=== PATIENT | female | born 1965 | race Caucasian/White ===

== ENCOUNTER 2024-01-26 12:10 | Emergency (ER) | payer MEDICAID, SELFPAY ==
[2024-01-26 12:24] VITALS: BP 182/101
--- NOTE | 2024-01-26 12:38 | ED.GENMED ---
History of Present Illness
General
Chief Complaint: Back Pain
Source: patient
Exam Limitations: none
Time Seen by Provider: 01/26/24 12:31
Nursing documentation reviewed up to this point in time: agreed with
History of Present Illness
History of Present Illness:
Patient is a 58-year-old female presents to the ER complaining of low back pain. She reports back pain started about 3 weeks ago. She denies any injury but does lift a lot. She reports she moves furniture around her house. She reports pain is
across her low back and radiates into her bilateral buttock region. She did see a chiropractor 2 weeks ago and that seemed to make her slightly more sore. She also took a Medrol Dosepak which she had leftover at her house. She reports that helped
however as soon as she stopped the pain came back.
She denies any loss of bowel or bladder. Denies any numbness tingling weakness in extremities.
Past History
Past History
ED Past Medical History: Other (Diverticulitis)
ED Past Surgical History: Other (Tummy tuck); Negative Appendectomy
Social History
Tobacco: Smoker
Alcohol: None
Drug: None
Personal:
Living: with family
Employment: Employed
Family History
Family History: Other
Review of Systems
Review of Systems
Allergies reviewed?: Yes
All Other Systems: ROS reviewed and negative except as documented in HPI and ROS
Constitutional: Reports no symptoms; Denies fever, fatigue or chills
Respiratory: Reports no symptoms
Cardiac: Reports no symptoms
ABD/GI: Reports no symptoms
: Denies incontinence
Musculoskeletal: Reports back pain (low back pain )
Skin: Reports no symptoms
Neurological: Denies weakness or numbness
Psychiatric: Reports no symptoms
Phy Exam
General Physical Exam
General Presentation: no apparent distress
General age: appears stated age
General Skin: warm and dry
General Habitus: normal
General Mental: alert
General Hydration: appears well hydrated
Neurological Exam
Neurological Exam: alert, oriented x3 and other (normal dorsiflexion/plantar flexion, nml distal sensation ; normal patellar reflexes negative straight leg raise normal distal sensation bilaterally)
Musculoskeletal Exam
Musculoskeletal Exam: full ROM and other (Normal inspection to back no redness normal inspection to back no rash no erythema to lumbar area mildly tender throughout the lumbar region; patient has pain when changing positions from sitting to standing
and back extension)
Skin Exam
Skin Exam: normal color and warm/dry
Psychiatric Exam
Psychiatric Exam: normal mood/affect
Course
Orders/Labs/Results
Orders:
Orders
01/26/24 12:52
CT Lumbar Spine W/o Iv Contras Urgent
Comment:
Reason For Exam: increasing lumbar pain radiating to buttocks
01/26/24 12:54
Dexamethasone Sod Phosphate [Decadron] 10 mg IM NOW STA
01/26/24 12:55
Lidocaine [Lidocaine 4% Patch] 1 patch TOPICAL NOW STA
Apply Lidocaine patch(s) to:: lumbar region
01/26/24 14:57
Vital Signs- Treatment ONCE
Frequency: Once
Vital Signs
Initial and Last Documented VS:
Initial Vital Signs
Temp Pulse Resp BP Pulse Ox
98.2 F 85 18 182/101 100
01/26/24 12:24 01/26/24 12:24 01/26/24 12:24 01/26/24 12:24 01/26/24 12:24
Last Documented Vital Signs
Temp Pulse Resp BP Pulse Ox
98.2 F 80 18 148/81 95
01/26/24 12:24 01/26/24 15:49 01/26/24 15:49 01/26/24 15:49 01/26/24 15:49
MDM/Problems Addressed
Differential Diagnosis Includes:
Not limited to muscle sprain strain, sciatica
MDM/Problems Addressed:
All right thank you symptoms are consistent with lumbar pain, sciatica. Patient no acute distress with no neurological deficit. She did try a small Medrol Dosepak at home which was old however that did improve her symptoms. No acute findings on
CAT scan denies any recent fever chills no evidence clinical symptoms for infection epidural abscess.
Symptoms are likely muscular/sciatica. Will DC with prednisone Flexeril close outpatient follow-up family doctor.
*Radiology
Radiology exam reviewed: radiology read reviewed
*Critical Care Note
Total Time (30-74mins, 75-104mins- exclusive of procedures): Not Applicable
ED Attending Note
-
Portions of this chart may have been created with voice recognition software.� Occasional wrong word or��sound alike� substitutions may have occurred due to the inherent limitations of voice recognition software.
Discharge Plan
Departure
Patient Disposition: Home (Routine Discharge)
Date of Disposition: 01/26/24
Time of Disposition: 15:46
Patient with high blood pressure during this ER visit?: Yes
Condition: Fair
Covid-19: Not Applicable
Discharge Problem:
Low back pain, Sciatica
Instructions: Low Back Pain (DC), Sciatica (DC), BLOOD PRESSURE
Prescriptions:
New
prednisone 10 mg Tablet
See Rx Instructions .ROUTE .COMPLEX Qty: 30 0RF
Rx Instructions:
Take By Mouth:
40 mg daily x3 days, 30 mg daily x3 days,
20 mg daily x3 days, 10 mg daily x3 days.
cyclobenzaprine 10 mg tablet
10 mg PO Q8H PRN (Reason: muscle spasm) Qty: 10 0RF
No Action
levothyroxine 75 MCG tablet
75 mcg PO DAILY
dextroamphetamine-amphetamine [Adderall] 20 MG tablet
15 mg PO DAILY
valsartan-hydrochlorothiazide 1 EACH tablet
1 tab PO DAILY
metronidazole 500 MG tablet
500 mg PO TID Qty: 15 0RF
levofloxacin 500 MG tablet
500 mg PO DAILY Qty: 5 0RF
Referrals:
Gertrudis Busch CRNP [Family Provider] -
Activity Restrictions/Additional Instructions:
As discussed start prednisone tomorrow. This medication was sent to your pharmacy this is a medication taper.
In addition you were given a prescription for Flexeril(muscle relaxer) to take as needed. This medication may cause drowsiness. No driving or drinking alcohol while taking this medication. You may walk however avoid lifting. You may try warm
moist heat to your lower back.
Avoid prolonged positions.
Follow-up with your family doctor in the next several days return if any worsening of symptoms
Interventions
Interventions:
*Risk Screen - Suicide Last Done: 01/26/24 12:24
ED-Musculoskeletal Assessment Last Done: 01/26/24 12:53
Discharge Date and Time
Print Language: MONGOLIAN
[2024-01-26] MEDS: LIDOCAINE 4% PATCH 1 PATCH TOPICAL (13:03)
[2024-01-26] MEDS: DECADRON 10 MG IM (13:04)
[2024-01-26 15:49] VITALS: BP 148/81
== END 2024-01-26 16:26 | disposition home or self-care (01) ==
LOC: EMR 12:10
PROVIDERS: EMERGENCY PHYSICIAN Student in an Organized Health Care Education/Training Program; FAMILY PHYSICIAN Nurse Practitioner Adult Health
DX: M54.40 Lumbago with sciatica, unspecified side (principal); F17.200 Nicotine dependence, unspecified, uncomplicated; Z90.49 Acquired absence of other specified parts of digestive tract
CPT/HCPCS: 99284; 96372; 72131

== ENCOUNTER 2024-04-09 13:13 | Emergency (ER) | payer OTHER, SELFPAY ==
[2024-04-09 13:15] VITALS: BP 165/91
--- NOTE | 2024-04-09 14:40 | ED.GENMED ---
History of Present Illness
General
Chief Complaint: Musculo-Skeletal Complaint
Source: patient
Exam Limitations: none
Time Seen by Provider: 04/09/24 13:30
Nursing documentation reviewed up to this point in time: agreed with
History of Present Illness
History of Present Illness:
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
the past week. Patient has been helping her daughter paint and has been up and down off a ladder and bending over kneeling. She denies any injuries. Her knees just started hurting 1 morning and feel like they are burning, worse with
weightbearing. She also has some pain with flexion. She feels that the swelling is worse on the right than the left but the pain is worse on the left than the right. She has not noticed any warmth or redness. She is able to bend and walk. She
has not had a fever, calf pain or swelling, numbness tingling or weakness. A few months ago the/within the last year patient was having some issues and went for some testing by her family doctor and was concerned that patient has lupus. She says
her markers were 'off the charts' but the patient never fully had a diagnosis because she never went to the perforator loader for follow-up. Patient says it was too much money. Her sister had lupus before she of cancer. Patient does not have
any other joint pain or swelling
Past History
Past History
ED Past Medical History: Other (Diverticulitis)
ED Past Surgical History: Other (Tummy tuck); Negative Appendectomy
Social History
Tobacco: Smoker
Alcohol: None
Drug: None
Personal:
Living: with family
Employment: Employed
Family History
Family History: Other
Review of Systems
Review of Systems
Allergies reviewed?: Yes
All Other Systems: Not applicable
Phy Exam
Physical Exam
Physical Exam:
GENERAL: Alert , in no apparent distress, comfortable at rest
HEAD: NCAT
CV: 2+ DP PULSES B/L
NEUROLOGICAL: Alert and oriented, no focal neuro deficits, , 5/5 strength, sensation intact, ambulation slight limp right leg
SKIN: Warm and dry,
MUSCULOSKELETAL: mild STS right ankle with tenderness to malleolus medially; pain with inversion and eversion;
no tenderness at the base of the 5th metatarsal, no other foot tenderness
no knee/prox tib/fib tenderness, full painless ROM;
PSYCH: Normal and appropriate interaction.
Course
Orders/Labs/Results
Orders:
Orders
04/09/24 13:57
Knee, Left 4 or More Views [CR Knee - Left 4 Or More View*] Urgent
Comment:
Reason For Exam: b/l knee celsa, swelling
Knee, Right 4 or More Views [CR Knee- Right 4 Or More View*] Urgent
Comment:
Reason For Exam: bilateral knee pain, swelling
Vital Signs
Initial and Last Documented VS:
Initial Vital Signs
Temp Pulse Resp BP Pulse Ox
36.9 C 100 18 165/91 98
04/09/24 13:15 04/09/24 13:15 04/09/24 13:15 04/09/24 13:15 04/09/24 13:15
Last Documented Vital Signs
Temp Pulse Resp BP Pulse Ox
36.9 C 100 18 165/91 98
04/09/24 13:15 04/09/24 13:15 04/09/24 13:15 04/09/24 13:15 04/09/24 13:15
ED Attending Note
-
Portions of this chart may have been created with voice recognition software.� Occasional wrong word or��sound alike� substitutions may have occurred due to the inherent limitations of voice recognition software.
Discharge Plan
Departure
Patient Disposition: Home (Routine Discharge)
Date of Disposition: 02/24/25
Time of Disposition: 15:07
Patient with high blood pressure during this ER visit?: Yes
Condition: Fair
Covid-19: Not Applicable
Discharge Problem:
Acute knee pain, Osteoarthritis
Instructions: Knee pain - ED discharge instructions
Prescriptions:
New
prednisone 50 mg tablet
50 mg PO DAILY Qty: 4 0RF
No Action
levothyroxine 75 MCG tablet
75 mcg PO DAILY
dextroamphetamine-amphetamine [Adderall] 20 MG tablet
15 mg PO DAILY
valsartan-hydrochlorothiazide 1 EACH tablet
1 tab PO DAILY
metronidazole 500 MG tablet
500 mg PO TID Qty: 15 0RF
levofloxacin 500 MG tablet
500 mg PO DAILY Qty: 5 0RF
prednisone 10 mg Tablet
See Rx Instructions .ROUTE .COMPLEX Qty: 30 0RF
Rx Instructions:
Take By Mouth:
40 mg daily x3 days, 30 mg daily x3 days,
20 mg daily x3 days, 10 mg daily x3 days.
cyclobenzaprine 10 mg tablet
10 mg PO Q8H PRN (Reason: muscle spasm) Qty: 10 0RF
Referrals:
Gertrudis Busch CRNP [Family Provider] - Follow up in 2-3 days
Activity Restrictions/Additional Instructions:
your x-ray shows some mild arthritis/narrowing of the compartment in your knees. You could potentially have an autoimmune cause to your knee pain and inflammation and should continue the workup with your primary and/or perforator loader for this. In
the meantime try steroids once a day, prednisone for 5 days starting tomorrow. We gave you a dose here. For pain you can try Tylenol 2-3 times a day. Or if you have that pain medication hydrocodone/Tylenol you can use that 2-3 times a day but do
not add additional Tylenol to this.
Watch for signs of redness or worsening pain or swelling and inability to move your knee and return if worse. Otherwise follow-up with your family doctor. You can keep your knees wrapped during the day and take the wrappings off at night if you
would like.
Interventions
Interventions:
*Risk Screen - Suicide Last Done: 04/09/24 13:15
*General Assessment Last Done: 04/09/24 13:15
*Neglect/Abuse Screening Last Done: 04/09/24 13:15
ED-Musculoskeletal Assessment Last Done: 04/09/24 13:40
Discharge Date and Time
Print Language: BURKIN[place]
[2024-04-09] MEDS: DELTASONE 50 MG PO (15:22)
[2024-04-09 15:29] VITALS: BP 160/88
== END 2024-04-09 15:40 | disposition home or self-care (01) ==
LOC: EMR 13:13
PROVIDERS: EMERGENCY PHYSICIAN Emergency Medicine; FAMILY PHYSICIAN Nurse Practitioner Adult Health
DX: M17.0 Bilateral primary osteoarthritis of knee (principal); I10 Essential (primary) hypertension; E78.5 Hyperlipidemia, unspecified; Z90.49 Acquired absence of other specified parts of digestive tract; F17.200 Nicotine dependence, unspecified, uncomplicated
CPT/HCPCS: 99284; 73564